=== PATIENT | male | born 1935 | race Caucasian/White ===

== ENCOUNTER → 2018-09-11 | Outpatient (CLI) | payer MEDICARE, OTHER ==
[~2018-09-11] MED LIST: ASPI325 PO; ASPI81CH PO; ATOR10 PO; DUTA.5 PO; FINA5 PO; GABA100 PO; GLIM2 PO; GLIM4 PO; METF500C PO; OMEP20ER PO; OXYC5 PO; Pain Relief500 MG PO; TERA5 PO; TRAM50 PO; Terazosin HCl10 MG
== END | disposition home or self-care (01) ==
LOC: LAB EV 08:30
DX: K52.9 Noninfective gastroenteritis and colitis, unspecified (principal)
CPT/HCPCS: 87493

== ENCOUNTER → 2020-07-01 | Outpatient (CLI) | payer MEDICARE, OTHER ==
[~2020-07-01] MED LIST changes: +Aspir 8181 MG PO; +IBU600 MG PO; +LISI10 PO
== END | disposition home or self-care (01) ==
LOC: PLD 11:30 → LAB SHORT 11:30
DX: D48.5 Neoplasm of uncertain behavior of skin (principal)
CPT/HCPCS: 88305

== ENCOUNTER 2020-09-23 09:03 | Day surgery (SDC) | payer MEDICARE, OTHER ==
[~2020-09-23] VITALS: Ht 175.3 cm; Wt 90.5 kg
--- NOTE | 2020-09-23 11:15 | NUR ---
09/23/20 1115 [place] PATIENT SPOKE WITH DR. SNEED AND DR DONG, PATIENT CONSENTED FOR ANESTHESIA INCLUDING AN INTERSCALENE BLOCK, PATIENT EDUCATED ON BLOCK, VS STABLE, INTERSCALENE BLOCK COMPLETED BY DR DONG WITH NO COMPLICATIONS, PATIETN TOLERATED WELL, VS REMAIN STABLE, PATIENT TO OR VIA CLAUDIA PAUL OR STAFF, RIGOBERTO SAPP RN
--- NOTE | 2020-09-23 12:00 | NUR ---
09/23/20 1200 Zari Kennedy EPI 0.25MG INJECTED INTO 50ML OF NACL TO CONSTITUTE AND EPI SOLUTION OF 1:200,000 PER PHYSICIAN ORDERS
--- NOTE | 2020-09-23 14:20 | NUR ---
09/23/20 9660 Marisol Giordano PT STATES "I LIVE ALONE AND DON'T HAVE ANYONE TO HELP MD." I SPOKE WITH FRIEND WHO IS TAKING HIM HOME TO SEE IF SHE COULD POP OVER ONCE A DAY TO HELP HIM IF HE NEEDS IT AND MAKE SURE HE'S OK. SHE SAID SHE WOULD TRY HER BEST. I SPOKE WITH FRIEND AND PATIENT REGARDING CONTACTING MD SNEED OFFICE TO SEE IF THEY COULD SET UP HOME HEALTH FOR HIM DURING HIS HEALING PROCESS AND FOR THEM TO CONTACT HIS INSURANCE TO TRY TO SET IT UP FOR HIM. PT AGREED TO DO THAT AND FRIEND SAID SHE WOULD HELP HIM WITH THAT. PT STABLE, MEETS CRITERIA FOR D/C TO HOME. WILL FOLLOW UP WITH HIM TOMORROW WITH FOLLOW UP PHONE CALL.
== END 2020-09-23 14:30 | disposition home or self-care (01) ==
LOC: ORSCSDS 09:03
PROVIDERS: Orthopaedic Surgery
PROC: 0LQ20ZZ Repair Left Shoulder Tendon, Open Approach (ICD-10-PCS; principal; 2020-09-23 10:30)
PROC: 0RBK4ZZ Excision of Left Shoulder Joint, Percutaneous Endoscopic Approach (ICD-10-PCS; principal; 2020-09-23 10:30)
DX: M75.112 Incomplete rotator cuff tear or rupture of left shoulder, not specified as traumatic (principal); S46.112A Strain of muscle, fascia and tendon of long head of biceps, left arm, initial encounter; E11.9 Type 2 diabetes mellitus without complications; K21.9 Gastro-esophageal reflux disease without esophagitis; E78.5 Hyperlipidemia, unspecified; E11.42 Type 2 diabetes mellitus with diabetic polyneuropathy; Z79.899 Other long term (current) drug therapy; Z79.82 Long term (current) use of aspirin
CPT/HCPCS: 82947; C1713; J0171; J0690; J1100; J2001; J2250; J2370; J2405; J2704; J3010; J7120

== ENCOUNTER → 2022-01-05 | Outpatient (CLI) | payer MEDICARE, OTHER ==
[2022-01-05 11:36] LABS: BASOPHILS ABSOLUTE AUTO 0.08 K/mm3 (0.00-0.23); BASOPHILS PERCENT AUTO 1 % (0-2); EOSINOPHILS ABSOLUTE AUTO 0.07 K/mm3 (0.00-0.68); EOSINOPHILS PERCENT AUTO 1 % (0-6); Hematocrit 40.7 % (37.0-53.0); Hemoglobin 13.8 g/dL (13.5-17.5); IMMATURE GRAN ABSOLUTE AUTO 0.02 K/mm3 (0.00-0.10); IMMATURE GRAN PERCENT AUTO 0 % (0-1); LYMPHOCYTES ABSOLUTE AUTO 2.25 K/mm3 (0.84-5.20); LYMPHOCYTES PERCENT AUTO 23 % (21-46); MONOCYTES ABSOLUTE AUTO 1.01 K/mm3 (0.16-1.47); MONOCYTES PERCENT AUTO 10 % (4-13); Mean Corpuscular HGB 30.5 pg (26.0-34.0); Mean Corpuscular HGB Conc 33.9 g/dL (31.5-36.5); Mean Corpuscular Volume 90 fL (80-100); Mean Platelet Volume 10.6 fL (9.1-12.4); NEUTROPHILS ABSOLUTE AUTO 6.58 K/mm3 (1.96-9.15); NEUTROPHILS PERCENT AUTO 66 % (41-73); Platelet Count 189 K/mm3 (150-400); RDW Coefficient Variation 14.4 % (11.7-14.2); RDW Standard Deviation 46.9 fL (35.1-46.3); Red Blood Cell Count 4.53 M/mm3 (4.30-5.90); White Blood Cell Count 10.01 K/mm3 (4.00-11.30)
[2022-01-05 11:46] LABS: Albumin, Blood 3.2 g/dL (3.4-5.0); Albumin/Globulin Ratio 0.9 (0.8-1.8); Bilirubin, Total 0.5 mg/dL (0.1-1.0); Bun/Creatinine Ratio 12.6 (12.0-20.0); Calcium, Blood 8.6 mg/dL (8.5-10.1); Creatinine, Blood 1.03 mg/dL (0.60-1.20); Globulin, Blood 3.6 g/dL (2.2-4.0); Potassium, Blood 3.6 mmol/L (3.5-5.5); Total Protein, Blood 6.8 g/dL (6.4-8.2)
== END | disposition home or self-care (01) ==
LOC: LAB SHORT 11:31 → LAB 11:31
PROVIDERS: Physician Assistant
DX: E86.0 Dehydration (principal)
CPT/HCPCS: 80053; 85025

== ENCOUNTER 2023-03-02 09:40 | Inpatient (IN) | payer OTHER, MEDICARE ==
[~2023-03-02] VITALS: Ht 175.3 cm; Wt 85.7 kg
[2023-03-02 10:01] LABS: BASOPHILS ABSOLUTE AUTO 0.09 K/mm3 (0.00-0.23); BASOPHILS PERCENT AUTO 1 % (0-2); EOSINOPHILS PERCENT AUTO 1 % (0-6); Hematocrit 40.1 % (37.0-53.0); Hemoglobin 13.3 g/dL (13.5-17.5); IMMATURE GRAN PERCENT AUTO 2 % (0-1); LYMPHOCYTES ABSOLUTE AUTO 3.14 K/mm3 (0.84-5.20); LYMPHOCYTES PERCENT AUTO 28 % (21-46); MONOCYTES ABSOLUTE AUTO 1.01 K/mm3 (0.16-1.47); MONOCYTES PERCENT AUTO 9 % (4-13); Mean Corpuscular HGB 29.8 pg (26.0-34.0); Mean Corpuscular HGB Conc 33.2 g/dL (31.5-36.5); Mean Corpuscular Volume 90 fL (80-100); Mean Platelet Volume 10.7 fL (9.1-12.4); NEUTROPHILS ABSOLUTE AUTO 6.75 K/mm3 (1.96-9.15); NEUTROPHILS PERCENT AUTO 60 % (41-73); Platelet Count 202 K/mm3 (150-400); RDW Coefficient Variation 14.6 % (11.7-14.2); RDW Standard Deviation 47.8 fL (35.1-46.3); Red Blood Cell Count 4.47 M/mm3 (4.30-5.90); White Blood Cell Count 11.29 K/mm3 (4.00-11.30)
[2023-03-02 10:16] LABS: International Normalized Ratio 1.04; Prothrombin Time Results 10.9 Sec (9.7-11.5)
[2023-03-02 10:20] LABS: Alanine Aminotransfer (ALT/SGP 45 U/L (12-78); Albumin, Blood 3.1 g/dL (3.4-5.0); Albumin/Globulin Ratio 0.9 (0.8-1.8); Alk Phos 54 U/L (50-136); Anion Gap 8 mmol/L (6-16); Aspartate Aminotrans (AST/SGOT 34 U/L (12-37); Bilirubin, Total 0.3 mg/dL (0.1-1.0); Blood Urea Nitrogen 14 mg/dL (8-24); Bun/Creatinine Ratio 15.5 (12.0-20.0); CO2, Blood 24 mmol/L (21-32); Calcium, Blood 8.2 mg/dL (8.5-10.1); Chloride, Blood 111 mmol/L (98-108); Ethanol (Alcohol), Blood, Med <3 mg/dL; Globulin, Blood 3.6 g/dL (2.2-4.0); Glomerular Filtration Rate 84 (60-); Glucose, Blood 194 mg/dL (70-99); Potassium, Blood 3.5 mmol/L (3.5-5.5); Sodium, Blood 143 mmol/L (136-145); Total Protein, Blood 6.7 g/dL (6.4-8.2)
[2023-03-02] MEDS ORDERED: MORP15ER PO ×2 (14:03→14:35)
[2023-03-02] MEDS ORDERED: IBUP400 PO ×2 (14:03→14:34)
[2023-03-02] MEDS ORDERED: CEPH500 PO ×2 (14:03→14:34)
[2023-03-02] MEDS ORDERED: ACET500 PO ×2 (14:03→14:34)
[2023-03-02] MEDS ORDERED: ONDA4ODT MM ×2 (14:03→14:35)
[2023-03-02 19:13] LABS: Source, Urine Clean Catch
[2023-03-02 19:31] LABS: Appearance, Urine Clear (Clear); Bilirubin, Urine Neg (Neg); Blood, Urine 2+ (Neg); Color, Urine Yellow (P-Yellow); Glucose Qualitative, Urine 4+ (Neg); Ketones, Urine 2+ (Neg); Leukocyte Esterase, Urine Neg (Neg); Nitrite, Urine Neg (Neg); Protein, Urine 2+ (Neg); Specific Gravity, Urine 1.025 (1.003-1.022); Urobilinogen, Urine NORM (Normal)
[2023-03-02 19:40] LABS: Bacteria Many /hpf; Squamous Epithelial Cells Rare /hpf (Few)
[2023-03-02 19:41] LABS: Hyaline Casts 0-2 /lpf (0-2); Mucus Light (0-Heavy)
[2023-03-02 19:52] LABS: U Amphetamine Screen Not Detected; U Barbituate Screen Not Detected; U Benzodiazapine Screen Not Detected; U Buprenorphine Screen Not Detected; U Cannabinoids Screen Not Detected; U Cocaine Screen Not Detected; U Methadone Screen Not Detected; U Methamphetamine Screen Not Detected; U Opiates Screen DETECTED; U Oxycodone Screen Not Detected; U Phencyclidine Screen Not Detected; U Propoxyphene Screen Not Detected
[2023-03-02 20:36] LABS: Hematocrit 27.4 % (37.0-53.0); Hemoglobin 8.8 g/dL (13.5-17.5)
[2023-03-02 22:10] VITALS: BP 111/62
--- NOTE | 2023-03-02 23:21 | NUR ---
PATIENT ED ADMIT ARRIVED TO FLOOR VIA MINDI TAYLOR, SKIN ASSESSED AND WITNESSED WITH ERIC RAINEY. PATIENT HAS MULTIPLE SKINS TEARS, AND ABRAISONS. SPLINT TO R ARM AND ABD AND EJ WRAP TO R HIP FOR PRESSURE. MEDICATED FOR PAIN AND NAUSEA, IVF RUNNING. BED IN LOW POSTION AND CALL LIGHT IN REACH.
[2023-03-03] VITALS (24 sets, daily range): BP systolic 74–147; BP diastolic 47–64
--- NOTE | 2023-03-03 01:35 | NUR ---
BP PATIENT BP 74/48 HR 94, SATS [address] WEINBERG CALLED ORDER FOR BOLUS, STAT CBC, AND FENT, OBTAINED. VITALS RECHECK 120/55 HR 92 SATS 96 ON RA. 1 LITER BOLUS INFUSED. AWAITING LAB RESULTS. PATIENT ROLLED AND EXAMINED FOR BRUISING ON BACK NO DISCOLORATION NOTED.
[2023-03-03 01:52] LABS: BASOPHILS ABSOLUTE AUTO 0.02 K/mm3 (0.00-0.23); BASOPHILS PERCENT AUTO 0 % (0-2); EOSINOPHILS PERCENT AUTO 0 % (0-6); Hematocrit 27.5 % (37.0-53.0); IMMATURE GRAN ABSOLUTE AUTO 0.22 K/mm3 (0.00-0.10); IMMATURE GRAN PERCENT AUTO 1 % (0-1); LYMPHOCYTES ABSOLUTE AUTO 1.04 K/mm3 (0.84-5.20); LYMPHOCYTES PERCENT AUTO 6 % (21-46); MONOCYTES ABSOLUTE AUTO 2.06 K/mm3 (0.16-1.47); MONOCYTES PERCENT AUTO 11 % (4-13); Mean Corpuscular HGB Conc 32.7 g/dL (31.5-36.5); Mean Corpuscular Volume 92 fL (80-100); Mean Platelet Volume 11.2 fL (9.1-12.4); NEUTROPHILS PERCENT AUTO 82 % (41-73); Platelet Count 184 K/mm3 (150-400); RDW Coefficient Variation 14.9 % (11.7-14.2); RDW Standard Deviation 49.3 fL (35.1-46.3); White Blood Cell Count 19.04 K/mm3 (4.00-11.30)
--- NOTE | 2023-03-03 03:12 | NUR ---
BLADDER SCAN PATIENT HAS NOT VOIDED SINCE ED, BLADDER SCAN IS 222. 2ND 1L BOLUS IS INFUSING AT THIS TIME.
--- NOTE | 2023-03-03 05:20 | NUR ---
SUMMARY REPEAT BLADDER SCAN IS 260 AFTER SECOND LITER BOLUS, DENIES SOB,LUNGS SOUNDS CLEAR AND DIM IN BASES. VSS, SPO2 REMAINS ABOVE 95% ON RA. BP STABLE 100S/50S. IVF @ 150/HR. LAB IS IN TO DRAW FOLLOW UP CBC, AND TYPE AND CROSS. WILL REPORT TO DAY SHIFT.
--- NOTE | 2023-03-03 05:46 | NUR ---
PATIENT UNABLE TO VOID THIS SHIFT, BLADDER SCAN OF 260, TOTAL IV INPUT THIS SHIFT OF 2600. CALL TO DR. CARYN ERVIN. INSTRUCTIONS TO RE BLADDER SCAN IN A FEW HOURS, WILL REPORT TO DAY SHIFT.
[2023-03-03 06:17] LABS: BASOPHILS ABSOLUTE AUTO 0.02 K/mm3 (0.00-0.23); BASOPHILS PERCENT AUTO 0 % (0-2); EOSINOPHILS PERCENT AUTO 0 % (0-6); Hematocrit 23.3 % (37.0-53.0); Hemoglobin 7.6 g/dL (13.5-17.5); IMMATURE GRAN ABSOLUTE AUTO 0.09 K/mm3 (0.00-0.10); IMMATURE GRAN PERCENT AUTO 1 % (0-1); LYMPHOCYTES ABSOLUTE AUTO 1.35 K/mm3 (0.84-5.20); LYMPHOCYTES PERCENT AUTO 8 % (21-46); MONOCYTES ABSOLUTE AUTO 2.18 K/mm3 (0.16-1.47); MONOCYTES PERCENT AUTO 13 % (4-13); Mean Corpuscular HGB 29.8 pg (26.0-34.0); Mean Corpuscular HGB Conc 32.6 g/dL (31.5-36.5); Mean Corpuscular Volume 91 fL (80-100); Mean Platelet Volume 11.3 fL (9.1-12.4); NEUTROPHILS ABSOLUTE AUTO 12.71 K/mm3 (1.96-9.15); NEUTROPHILS PERCENT AUTO 78 % (41-73); Platelet Count 172 K/mm3 (150-400); RDW Coefficient Variation 15.3 % (11.7-14.2); RDW Standard Deviation 50.7 fL (35.1-46.3); Red Blood Cell Count 2.55 M/mm3 (4.30-5.90); White Blood Cell Count 16.35 K/mm3 (4.00-11.30)
[2023-03-03 06:43] LABS: Bun/Creatinine Ratio 18.4 (12.0-20.0); Calcium, Blood 6.6 mg/dL (8.5-10.1); Creatinine, Blood 1.41 mg/dL (0.60-1.20); Potassium, Blood 4.8 mmol/L (3.5-5.5)
--- NOTE | 2023-03-03 12:30 | NUR ---
ALTERED LOC PT VISITOR REPORTS THE PATIENT IS MORE SLEEPY AND DIFFICULT TO AROUSE. ASSESSED PATIENT WHO WAS NOW NEEDING LOUD VERBAL/PHYSICAL STIMULATION TO AROUSE, PT UNABLE TO SAY WHY HE IS HERE BUT WAS ABLE TO SAY HE WAS IN THE HOSPITAL, VITALS OBTAINED, ATTENDING NOTIFIED AND ORDRED STAT CT AND CBG WITH HOSPITALIST CONSULT. CLOSE MONITORING WAS KEPT IN PLACE BY THIS RN AND AUTO SERVICER OVER THE NEXT HOUR TO MONITOR FOR ANY ADITIONAL CHANGES IN MENTATION. AFTER APPROXIMATLY ONE HOUR PT STARTED TO CLEAR UP MENTATION AND STARTED RETURNING TO BASELINE, SPEECH CLEARED UP AND HE WAS NOW ABLE TO SAY WHERE HE WAS AND WHY HE WAS HERE. CLOSE MONITORING KEPT IN PLACE FOR AN ADDITIONAL 2 HOURS, ORDERS OBTAINED BY CONSULTING HOSPITALIST.
[2023-03-03 12:47] LABS: Hematocrit 21.5 % (37.0-53.0); Hemoglobin 7.1 g/dL (13.5-17.5)
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
--- NOTE | 2023-03-03 21:00 | NUR ---
PT WITH LARGE TIGHT ABDOMEN WHICH DAY NURSE REPORTED WAS SOFT OF 1630 PT ORIENTED TO SELF,BUT NOT LOCATION.TACHY PHONE CALL PLACED TO DR RUBIN AND CT WAS ORDERED.
[2023-03-03 21:40] LABS: BASOPHILS ABSOLUTE AUTO 0.04 K/mm3 (0.00-0.23); BASOPHILS PERCENT AUTO 0 % (0-2); EOSINOPHILS ABSOLUTE AUTO 0.01 K/mm3 (0.00-0.68); EOSINOPHILS PERCENT AUTO 0 % (0-6); Hemoglobin 7.3 g/dL (13.5-17.5); IMMATURE GRAN ABSOLUTE AUTO 0.08 K/mm3 (0.00-0.10); IMMATURE GRAN PERCENT AUTO 1 % (0-1); LYMPHOCYTES ABSOLUTE AUTO 1.57 K/mm3 (0.84-5.20); LYMPHOCYTES PERCENT AUTO 10 % (21-46); MONOCYTES ABSOLUTE AUTO 2.28 K/mm3 (0.16-1.47); MONOCYTES PERCENT AUTO 15 % (4-13); Mean Corpuscular HGB Conc 33.2 g/dL (31.5-36.5); Mean Corpuscular Volume 87 fL (80-100); Mean Platelet Volume 11.2 fL (9.1-12.4); NEUTROPHILS ABSOLUTE AUTO 11.73 K/mm3 (1.96-9.15); NEUTROPHILS PERCENT AUTO 75 % (41-73); Platelet Count 155 K/mm3 (150-400); RDW Coefficient Variation 17.6 % (11.7-14.2); RDW Standard Deviation 56.5 fL (35.1-46.3); Red Blood Cell Count 2.52 M/mm3 (4.30-5.90); White Blood Cell Count 15.71 K/mm3 (4.00-11.30)
[2023-03-03 21:44] LABS: Calcium, Blood 6.9 mg/dL (8.5-10.1); Creatinine, Blood 1.57 mg/dL (0.60-1.20); Potassium, Blood 4.3 mmol/L (3.5-5.5)
--- NOTE | 2023-03-03 22:33 | NUR ---
DR RUBIN PHONED WITH REPORT NO WORRISOME CHANGES. ORDER GIVEN FOR NO CATH [id number] PT TO VOID ABLE DUE TO BPH ANDLABS REVIEWED,IV FLUIDS
[2023-03-04] VITALS (9 sets, daily range): BP systolic 128–149; BP diastolic 53–64
[2023-03-04 04:14] LABS: BASOPHILS ABSOLUTE AUTO 0.04 K/mm3 (0.00-0.23); BASOPHILS PERCENT AUTO 0 % (0-2); EOSINOPHILS ABSOLUTE AUTO 0.01 K/mm3 (0.00-0.68); EOSINOPHILS PERCENT AUTO 0 % (0-6); Hematocrit 20.9 % (37.0-53.0); Hemoglobin 6.9 g/dL (13.5-17.5); IMMATURE GRAN ABSOLUTE AUTO 0.09 K/mm3 (0.00-0.10); IMMATURE GRAN PERCENT AUTO 1 % (0-1); LYMPHOCYTES ABSOLUTE AUTO 1.21 K/mm3 (0.84-5.20); LYMPHOCYTES PERCENT AUTO 7 % (21-46); MONOCYTES ABSOLUTE AUTO 2.36 K/mm3 (0.16-1.47); MONOCYTES PERCENT AUTO 14 % (4-13); Mean Corpuscular HGB 29.1 pg (26.0-34.0); Mean Corpuscular Volume 88 fL (80-100); Mean Platelet Volume 11.1 fL (9.1-12.4); NEUTROPHILS PERCENT AUTO 78 % (41-73); Platelet Count 142 K/mm3 (150-400); RDW Standard Deviation 58.4 fL (35.1-46.3); Red Blood Cell Count 2.37 M/mm3 (4.30-5.90); White Blood Cell Count 17.01 K/mm3 (4.00-11.30)
[2023-03-04 04:34] LABS: Creatinine, Blood 1.35 mg/dL (0.60-1.20); Magnesium, Blood 1.3 mg/dL (1.6-2.4); Potassium, Blood 4.2 mmol/L (3.5-5.5)
--- NOTE | 2023-03-04 08:48 | NUR ---
SUMMARY PT CONT TO BE CONFUSED TO SURROUNDINGS.TOSSES LEGS OFF R EDGE OF BED,SETTING OFF BED ALARM FREQUENTLY.PT IS ALERT,BUT UNCOOPERATIVE AT TIMES.
[2023-03-04 11:41] LABS: Source, Urine Clean Catch
[2023-03-04 12:08] LABS: Appearance, Urine Clear (Clear); Bilirubin, Urine Neg (Neg); Blood, Urine 3+ (Neg); Color, Urine Yellow (P-Yellow); Glucose Qualitative, Urine 3+ (Neg); Ketones, Urine Neg (Neg); Leukocyte Esterase, Urine Neg (Neg); Nitrite, Urine Neg (Neg); Protein, Urine 1+ (Neg); Urobilinogen, Urine NORM (Normal)
[2023-03-04 12:57] LABS: Bacteria Few /hpf; Red Blood Cells, Urine 0-2 /hpf (0-2); Squamous Epithelial Cells Few /hpf (Few); White Blood Cells, Urine 0-2 /hpf (0-5)
[2023-03-04 18:09] LABS: Hematocrit 21.4 % (37.0-53.0); Hemoglobin 7.3 g/dL (13.5-17.5)
--- NOTE | 2023-03-04 18:36 | NUR ---
SHIFT SUMMARY PT ALERT, CONFUSED, PLEASANT, COOPERATIVE WITH CARE. CBGS ACHS, COV PER EMAR. DENIZ PO-LOW PO INTAKE, FULL MEAL ASSIST. VOIDING/URINAL AND ATTENDS IN PLACE. PAIN MANAGED WITH OXY AND TYLENOL. REPOSITIONS WITH ASSIST. INFUSED TODAY MAG, CALCIUM AND BLOOD 1 UNIT, LR @ 100 MLS ORDERED. ALL DRESSINGS CHANGED/SPLINT REINFORCED. WILL REPORT TO ONCOMING SCOTT RN.
[2023-03-05] VITALS (9 sets, daily range): BP systolic 148–177; BP diastolic 55–68
--- NOTE | 2023-03-05 03:42 | NUR ---
SHIFT SUMMARY NO ACUTE CHANGES TO REPORT OVERNIGHT, PT HAS RESTED MOST OF THE NIGHT, PT WAS INCONTINENT THIS SHIFT REQUIERING A FULL BED CHANGE. PT PLESANTLY CONFUSED, BUT HAS INTERMITTENT MOMENTS OF CLARITY. ABLE TO MAKE NEEDS KNOWN. R ARM REMAINS SPLINTED REINFORCED DRESSING WITH ABD PAD AND NETTING. PT DOES NOT REPORT N/T IN EXT. MEDICATED FOR PAIN PRN PER EMAR. VITALS STABLE. BED IN LOWEST POSITION, CALL LIGHT WITHIN REACH.
[2023-03-05 04:07] LABS: BASOPHILS ABSOLUTE AUTO 0.03 K/mm3 (0.00-0.23); BASOPHILS PERCENT AUTO 0 % (0-2); EOSINOPHILS ABSOLUTE AUTO 0.01 K/mm3 (0.00-0.68); EOSINOPHILS PERCENT AUTO 0 % (0-6); Hematocrit 20.6 % (37.0-53.0); Hemoglobin 6.9 g/dL (13.5-17.5); IMMATURE GRAN ABSOLUTE AUTO 0.12 K/mm3 (0.00-0.10); IMMATURE GRAN PERCENT AUTO 1 % (0-1); LYMPHOCYTES ABSOLUTE AUTO 1.21 K/mm3 (0.84-5.20); LYMPHOCYTES PERCENT AUTO 7 % (21-46); MONOCYTES ABSOLUTE AUTO 2.13 K/mm3 (0.16-1.47); MONOCYTES PERCENT AUTO 13 % (4-13); Mean Corpuscular HGB Conc 33.5 g/dL (31.5-36.5); Mean Corpuscular Volume 90 fL (80-100); Mean Platelet Volume 11.2 fL (9.1-12.4); NEUTROPHILS ABSOLUTE AUTO 13.16 K/mm3 (1.96-9.15); NEUTROPHILS PERCENT AUTO 79 % (41-73); Platelet Count 139 K/mm3 (150-400); RDW Coefficient Variation 16.8 % (11.7-14.2); RDW Standard Deviation 54.2 fL (35.1-46.3); White Blood Cell Count 16.66 K/mm3 (4.00-11.30)
[2023-03-05 05:56] LABS: Albumin, Blood 2.4 g/dL (3.4-5.0); Albumin/Globulin Ratio 0.8 (0.8-1.8); Bilirubin, Total 0.4 mg/dL (0.1-1.0); Bun/Creatinine Ratio 23.3 (12.0-20.0); Calcium, Blood 7.2 mg/dL (8.5-10.1); Creatinine, Blood 0.94 mg/dL (0.60-1.20); Potassium, Blood 4.3 mmol/L (3.5-5.5); Total Protein, Blood 5.4 g/dL (6.4-8.2)
--- NOTE | 2023-03-05 06:03 | NUR ---
HGB HGB HAS DROPPED AGAIN TO 6.9. PT RECEIVED 1 UNIT OF PRBC YESTERDAY, AND HGB INCREASED SLIGHTLY ABOVE 7. DR. HAMMONDS AWARE OF HGB THIS AM AND HAS ORDERED ANOTHER UNIT OF PRBC.
[2023-03-05 16:23] LABS: Hematocrit 24.5 % (37.0-53.0); Hemoglobin 8.4 g/dL (13.5-17.5)
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
[2023-03-06] VITALS (7 sets, daily range): BP systolic 155–190; BP diastolic 63–73
[2023-03-06 05:33] LABS: BASOPHILS ABSOLUTE AUTO 0.04 K/mm3 (0.00-0.23); BASOPHILS PERCENT AUTO 0 % (0-2); EOSINOPHILS ABSOLUTE AUTO 0.04 K/mm3 (0.00-0.68); EOSINOPHILS PERCENT AUTO 0 % (0-6); Hematocrit 24.1 % (37.0-53.0); Hemoglobin 7.9 g/dL (13.5-17.5); IMMATURE GRAN PERCENT AUTO 1 % (0-1); LYMPHOCYTES ABSOLUTE AUTO 1.18 K/mm3 (0.84-5.20); LYMPHOCYTES PERCENT AUTO 8 % (21-46); MONOCYTES ABSOLUTE AUTO 2.32 K/mm3 (0.16-1.47); MONOCYTES PERCENT AUTO 16 % (4-13); Mean Corpuscular HGB 29.6 pg (26.0-34.0); Mean Corpuscular HGB Conc 32.8 g/dL (31.5-36.5); Mean Corpuscular Volume 90 fL (80-100); Mean Platelet Volume 10.8 fL (9.1-12.4); NEUTROPHILS ABSOLUTE AUTO 11.28 K/mm3 (1.96-9.15); NEUTROPHILS PERCENT AUTO 75 % (41-73); Platelet Count 171 K/mm3 (150-400); RDW Coefficient Variation 16.3 % (11.7-14.2); Red Blood Cell Count 2.67 M/mm3 (4.30-5.90); White Blood Cell Count 14.96 K/mm3 (4.00-11.30)
[2023-03-06 05:55] LABS: Bun/Creatinine Ratio 22.6 (12.0-20.0); Calcium, Blood 7.6 mg/dL (8.5-10.1); Creatinine, Blood 0.93 mg/dL (0.60-1.20); Potassium, Blood 3.7 mmol/L (3.5-5.5)
--- NOTE | 2023-03-06 07:31 | NUR ---
PT VSS T/O NIGHT, SATS 98% ON 2LO2, >93% ON RA THIS AM. PT A/O X3, IS FORGETFUL AT TIMES, REORIENTED PRN. PT PAIN MGD W/TYLENOL AND REPOSITIONING W/REP RELIEF. SPLINT CDI TO RUE, CAP REFILL WNL, PT DENIED N/T. DRESSINGS TO LUE AND R KNEE CHANGED. HEMATOMA TO R FLANK, HIP AND GROIN, SCROTUM PURPLE AND SWOLLEN. PT HAD 2 BM THIS SHIFT, ASSISTED W/URINAL PRN. PT UP OOB W/FWW+2 MOD ASSIST. PT USES CALL LIGHT AT TIMES, BED ALARM ON FOR SAFETY. PLAN TO MOBILIZE W/PT AND AWAIT DC PLANNING
[2023-03-07] VITALS: BP 169/76
[2023-03-07 04:19] VITALS: BP 174/78
--- NOTE | 2023-03-07 04:41 | NUR ---
SHIFT SUMMARY VSS, HTN NOTED, MEDICATED PER EMAR. PT REMAINS ASYMOTOMATIC. PT TOLLERATING PO INTAKE W/O N/V. VOIDING INTO URINAL W/ASSISTANCE. 2P MOD ASSIST WITH FWW GT BELT NEEDED TO BSC. PT REPOSITIONED T/O THE NIGHT TOLLERATED. LARGE, DARK PURPLE BRUISING NOTED ON PTS RIGHT FLANK, RIGHT SIDE, RIGHT ABD, AND GROIN. NOTED TO BE FIRMER THAN SKIN W/O BRUISING AND WARM TO TOUCH. PT REPORTS NO DISCOMFORT SURROUNDING THE BRUISING. PT MEDICATED FOR PAIN ONCE, PT NOTED TO BE VERY SENSITIVE TO NARCOTICS. PT EDUCATED MULTIPLE TIMES ABOUT I.S USE AND RESPIRATORY TOILETING. NO ACUTE EVENTS T/O THE NIGHT. PLAN FOR LABS TO BE TRENDED AND PT TO D/C TO SNF WHEN MEDICALLY CLEARED. NO IGNITION SOURCE NOTED.
[2023-03-07 04:47] LABS: BASOPHILS ABSOLUTE AUTO 0.06 K/mm3 (0.00-0.23); BASOPHILS PERCENT AUTO 1 % (0-2); EOSINOPHILS ABSOLUTE AUTO 0.18 K/mm3 (0.00-0.68); EOSINOPHILS PERCENT AUTO 2 % (0-6); Hematocrit 24.1 % (37.0-53.0); Hemoglobin 8.1 g/dL (13.5-17.5); IMMATURE GRAN ABSOLUTE AUTO 0.05 K/mm3 (0.00-0.10); IMMATURE GRAN PERCENT AUTO 0 % (0-1); LYMPHOCYTES ABSOLUTE AUTO 1.64 K/mm3 (0.84-5.20); LYMPHOCYTES PERCENT AUTO 14 % (21-46); MONOCYTES ABSOLUTE AUTO 2.08 K/mm3 (0.16-1.47); MONOCYTES PERCENT AUTO 18 % (4-13); Mean Corpuscular HGB 30.5 pg (26.0-34.0); Mean Corpuscular HGB Conc 33.6 g/dL (31.5-36.5); Mean Corpuscular Volume 91 fL (80-100); NEUTROPHILS PERCENT AUTO 66 % (41-73); Platelet Count 199 K/mm3 (150-400); RDW Coefficient Variation 16.6 % (11.7-14.2); RDW Standard Deviation 53.1 fL (35.1-46.3); Red Blood Cell Count 2.66 M/mm3 (4.30-5.90); White Blood Cell Count 11.81 K/mm3 (4.00-11.30)
--- NOTE | 2023-03-07 05:04 | NUR ---
SHIFT SUMMARY POD7 COLECTOMY W/STOMA CREATION. MIDLINE INCISION IS C/D/I, BRUISING NOTED ON RIGHT SIDE AND LOWER ABD/PUBIC. VSS. TELE READS SR 76, NO EVENTS OF AFIB. PT SLEPT WELL T/O THE NIGHT. VOIDING AND PASSING STOOL W/O DIFFICULTY. FLATTUS NOTED. PT TOLLERATING PO INTAKE W/O N/V. NO ACUTE EVENTS T/O THE NIGHT. PLAN FOR PT TO D/C HOME ON HOSPICE THIS WEEK. NO IGNITION SOURCE NOTED
[2023-03-07 05:06] LABS: Albumin, Blood 2.3 g/dL (3.4-5.0); Anion Gap 4 mmol/L (6-16); Blood Urea Nitrogen 22 mg/dL (8-24); Bun/Creatinine Ratio 24.2 (12.0-20.0); CO2, Blood 26 mmol/L (21-32); Calcium, Blood 7.4 mg/dL (8.5-10.1); Chloride, Blood 112 mmol/L (98-108); Creatinine, Blood 0.91 mg/dL (0.60-1.20); Glomerular Filtration Rate 83 (60-); Glucose, Blood 154 mg/dL (70-99); Phosphorus, Blood 2.1 mg/dL (2.5-4.9); Potassium, Blood 3.7 mmol/L (3.5-5.5); Sodium, Blood 142 mmol/L (136-145)
[2023-03-07 05:47] VITALS: BP 164/71
[2023-03-07 07:07] VITALS: BP 196/82
[2023-03-07 10:43] LABS: SARS-Cov-2 (COVID-19) PCR, MMC NEGATIVE (NEGATIVE)
[2023-03-07 14:36] VITALS: BP 185/72
== END 2023-03-07 17:01 | DRG 964 ==
LOC: ER 09:40 → MEDS 21:05 → SURS 21:05
PROVIDERS: Emergency Medicine; Hospitalist; Internal Medicine; Student in an Organized Health Care Education/Training Program; ADMIT Surgery
PROC: 0HQGXZZ Repair Left Hand Skin, External Approach (ICD-10-PCS; principal; 2023-03-02)
PROC: 30233N1 Transfusion of Nonautologous Red Blood Cells into Peripheral Vein, Percutaneous Approach (ICD-10-PCS; 2023-03-07)
DX: S42.411B Displaced simple supracondylar fracture without intercondylar fracture of right humerus, initial encounter for open fracture (principal); S27.0XXA Traumatic pneumothorax, initial encounter; D62 Acute posthemorrhagic anemia; S52.501A Unspecified fracture of the lower end of right radius, initial encounter for closed fracture; S22.41XA Multiple fractures of ribs, right side, initial encounter for closed fracture; F11.20 Opioid dependence, uncomplicated; N17.9 Acute kidney failure, unspecified; S42.454A Nondisplaced fracture of lateral condyle of right humerus, initial encounter for closed fracture; S42.434A Nondisplaced fracture (avulsion) of lateral epicondyle of right humerus, initial encounter for closed fracture; V89.2XXA Person injured in unspecified motor-vehicle accident, traffic, initial encounter; N40.0 Benign prostatic hyperplasia without lower urinary tract symptoms; K21.9 Gastro-esophageal reflux disease without esophagitis; E78.5 Hyperlipidemia, unspecified; H26.9 Unspecified cataract; S80.212A Abrasion, left knee, initial encounter; S80.211A Abrasion, right knee, initial encounter; S61.211A Laceration without foreign body of left index finger without damage to nail, initial encounter; S61.215A Laceration without foreign body of left ring finger without damage to nail, initial encounter; S70.01XA Contusion of right hip, initial encounter; G89.29 Other chronic pain; E83.51 Hypocalcemia; E86.0 Dehydration; S30.1XXA Contusion of abdominal wall, initial encounter; Z20.822 Contact with and (suspected) exposure to COVID-19; R14.0 Abdominal distension (gaseous); M19.90 Unspecified osteoarthritis, unspecified site; I95.9 Hypotension, unspecified; E83.42 Hypomagnesemia; D72.829 Elevated white blood cell count, unspecified; I10 Essential (primary) hypertension; E11.65 Type 2 diabetes mellitus with hyperglycemia; Z79.84 Long term (current) use of oral hypoglycemic drugs; Z79.82 Long term (current) use of aspirin; Z79.811 Long term (current) use of aromatase inhibitors; Z90.49 Acquired absence of other specified parts of digestive tract; Z90.89 Acquired absence of other organs; Z98.890 Other specified postprocedural states
CPT/HCPCS: 12002; 29105; 36415; 36430; 70450; 71260; 72125; 73080; 73130; 73200; 73562-LT; 73562-RT; 74177; 80048; 80053; 80069; 81001; 82330; 82947; 83036; 83690; 83735; 83880; 85014; 85018; 85025; 85610; 86850; 86900; 86901; 86923; 87086; 90471; 90714; 90715; 94760; 96361-59; 96365-59; 96375-59; 96376-59; 97110; 97116; 97162; 97166; 97530; 99291-25; A9270; G0390; G0480; J0360; J0612; J0690; J0780; J1170; J1815; J1885; J1940; J2270; J2405; J3010; J3475; J7030; J7050; J7120; P9016; Q9967; U0002

== ENCOUNTER 2023-03-21 14:03 | Inpatient (IN) | payer MEDICARE, OTHER ==
[~2023-03-21] VITALS: Ht 182.9 cm; Wt 102.1 kg
[~2023-03-21 14:03] MED LIST changes: +ACET500 PO; +CEPH500 PO; +IBUP400 PO; +MORP15ER PO; +ONDA4ODT MM
[2023-03-21 14:57] LABS: BASOPHILS ABSOLUTE AUTO 0.04 K/mm3 (0.00-0.23); BASOPHILS PERCENT AUTO 0 % (0-2); EOSINOPHILS PERCENT AUTO 0 % (0-6); Hematocrit 29.1 % (37.0-53.0); Hemoglobin 9.2 g/dL (13.5-17.5); IMMATURE GRAN ABSOLUTE AUTO 0.08 K/mm3 (0.00-0.10); IMMATURE GRAN PERCENT AUTO 1 % (0-1); LYMPHOCYTES ABSOLUTE AUTO 0.91 K/mm3 (0.84-5.20); LYMPHOCYTES PERCENT AUTO 5 % (21-46); MONOCYTES ABSOLUTE AUTO 1.25 K/mm3 (0.16-1.47); MONOCYTES PERCENT AUTO 7 % (4-13); Mean Corpuscular HGB 29.7 pg (26.0-34.0); Mean Corpuscular HGB Conc 31.6 g/dL (31.5-36.5); Mean Corpuscular Volume 94 fL (80-100); Mean Platelet Volume 11.6 fL (9.1-12.4); NEUTROPHILS ABSOLUTE AUTO 14.68 K/mm3 (1.96-9.15); NEUTROPHILS PERCENT AUTO 87 % (41-73); Platelet Count 426 K/mm3 (150-400); RDW Coefficient Variation 16.2 % (11.7-14.2); RDW Standard Deviation 55.4 fL (35.1-46.3); White Blood Cell Count 16.96 K/mm3 (4.00-11.30)
[2023-03-21] MEDS ORDERED: Norco 5-325 Ta1 EACH PO (15:07)
[2023-03-21 15:13] LABS: Albumin, Blood 2.4 g/dL (3.4-5.0); Albumin/Globulin Ratio 0.5 (0.8-1.8); Bilirubin, Total 0.6 mg/dL (0.1-1.0); Bun/Creatinine Ratio 14.1 (12.0-20.0); Creatinine, Blood 4.4 mg/dL (0.60-1.20); Globulin, Blood 4.5 g/dL (2.2-4.0); Total Protein, Blood 6.9 g/dL (6.4-8.2)
[2023-03-21 16:23] LABS: Source, Urine Clean Catch
[2023-03-21 16:36] LABS: Appearance, Urine Hazy (Clear); Blood, Urine 1+ (Neg); Color, Urine Amber (P-Yellow); Glucose Qualitative, Urine 1+ (Neg); Ketones, Urine Neg (Neg); Leukocyte Esterase, Urine 1+ (Neg); Nitrite, Urine Neg (Neg); Protein, Urine 2+ (Neg); Specific Gravity, Urine 1.025 (1.003-1.022); Urobilinogen, Urine 1+ (Normal)
[2023-03-21 17:56] LABS: Adenovirus F 40/41 Not Detected (NOT DETECT); Astrovirus Not Detected (NOT DETECT); Campylobacter Sp Not Detected (NOT DETECT); Cryptosporidium Not Detected (NOT DETECT); Cyclospora Cayetanensis Not Detected (NOT DETECT); E. Coli O157 Not Detected (NOT DETECT); Entamoeba Histolytica Not Detected (NOT DETECT); Enteroaggregative E. coli-EAEC Not Detected (NOT DETECT); Enteropathogenic E. coli-EPEC Not Detected (NOT DETECT); Enterotoxigenic E. coli-ETEC Not Detected (NOT DETECT); Giardia Lamblia Not Detected (NOT DETECT); Norovirus GI/GII Not Detected (NOT DETECT); Plesiomonas Shigelloides Not Detected (NOT DETECT); Rotavirus A Not Detected (NOT DETECT); Salmonella Sp Not Detected (NOT DETECT); Sapovirus Not Detected (NOT DETECT); Shiga Toxin-prod E. coli-STEC Not Detected (NOT DETECT); Shigella/Enteroin E. coli-EIEC Not Detected (NOT DETECT); Vibrio Cholerae Not Detected (NOT DETECT); Vibrio Sp Not Detected (NOT DETECT); Yersinia Enterocolitica Not Detected (NOT DETECT)
[2023-03-21 17:57] LABS: Bilirubin, Urine 1+ (Neg)
[2023-03-21 17:58] LABS: Bacteria Many /hpf; Squamous Epithelial Cells Few /hpf (Few)
[2023-03-21 17:59] LABS: Hyaline Casts 0-2 /lpf (0-2)
[2023-03-21 20:10] LABS: Base Excess Venous -18.1 mmol/L; Bicarbonate Venous 11.7 mmol/L (24.0-30.0); PCO2 Venous 27.9 mmHg (38-42); pH Blood Venous 7.18 (7.34-7.37)
[2023-03-21 20:30] VITALS: BP 96/42
[2023-03-21 20:50] LABS: Influenza A, PCR NEGATIVE (NEGATIVE); Influenza B, PCR NEGATIVE (NEGATIVE); Resp Syncytial Virus, PCR NEGATIVE (NEGATIVE); SARS-Cov-2 (COVID-19) PCR, MMC NEGATIVE (NEGATIVE)
== END 2023-03-21 20:44 | DRG 871 ==
LOC: ER 14:03 → ICUE 19:32
PROVIDERS: Nurse Practitioner Acute Care; Student in an Organized Health Care Education/Training Program; ADMIT Student in an Organized Health Care Education/Training Program
PROC: 3E033XZ Introduction of Vasopressor into Peripheral Vein, Percutaneous Approach (ICD-10-PCS; principal; 2023-03-21)
PROC: 0T9B70Z Drainage of Bladder with Drainage Device, Via Natural or Artificial Opening (ICD-10-PCS; 2023-03-21)
PROC: 02HV33Z Insertion of Infusion Device into Superior Vena Cava, Percutaneous Approach (ICD-10-PCS; 2023-03-21)
PROC: 3E03329 Introduction of Other Anti-infective into Peripheral Vein, Percutaneous Approach (ICD-10-PCS; 2023-03-21)
PROC: 0BH17EZ Insertion of Endotracheal Airway into Trachea, Via Natural or Artificial Opening (ICD-10-PCS; 2023-03-21)
DX: A41.9 Sepsis, unspecified organism (principal); J96.01 Acute respiratory failure with hypoxia; R65.21 Severe sepsis with septic shock; S52.91XA Unspecified fracture of right forearm, initial encounter for closed fracture; S22.31XA Fracture of one rib, right side, initial encounter for closed fracture; N17.9 Acute kidney failure, unspecified; E87.20 Acidosis, unspecified; E78.5 Hyperlipidemia, unspecified; E11.9 Type 2 diabetes mellitus without complications; I10 Essential (primary) hypertension; N40.0 Benign prostatic hyperplasia without lower urinary tract symptoms; E86.0 Dehydration; S70.01XA Contusion of right hip, initial encounter; I46.9 Cardiac arrest, cause unspecified; M19.90 Unspecified osteoarthritis, unspecified site; Z20.822 Contact with and (suspected) exposure to COVID-19; R19.7 Diarrhea, unspecified; V89.2XXA Person injured in unspecified motor-vehicle accident, traffic, initial encounter; Z79.84 Long term (current) use of oral hypoglycemic drugs; Z79.811 Long term (current) use of aromatase inhibitors; Z79.82 Long term (current) use of aspirin; Z79.899 Other long term (current) drug therapy; Z90.49 Acquired absence of other specified parts of digestive tract; Z90.89 Acquired absence of other organs; Z98.890 Other specified postprocedural states
CPT/HCPCS: 0241U; 31500; 36415; 36556; 51701; 71045; 80053; 81001; 82803; 83605; 85025; 87086; 87507; 92950; 93005; 93010; 96361-59; 96365-59; 96366-59; 96368; 96375-59; 96376-59; 99291-25; A9270; C1751; J0171; J0696; J2405; J2765; J3370; J7030; J7050; J7060; J7120